=== PATIENT | female | born 1965 | race Caucasian/White ===

== ENCOUNTER 2020-09-25 05:22 | Emergency (ER) | payer BC ==
[2020-09-25] MEDS ORDERED: HYDROmorphone 0.5 MG/0.5 ML Syringe IVPUSH ONE ×2 (05:42→06:29)
[2020-09-25] MEDS ORDERED: Metoclopramide 10 MG/2 ML SDV IVPUSH ONE (05:42)
[2020-09-25] MEDS ORDERED: Sodium Chloride 0.9% 1,000 ML IV SCH (05:45)
--- NOTE | 2020-09-25 05:46 | EDM.PDOC ---
ED HPI GENERAL MEDICAL PROBLEM - General Chief Complaint: Flank Pain Stated Complaint: LEFT FLANK PAIN Time Seen by Provider: 09/25/20 05:41 Source of Information: Reports: Patient History Limitations: Reports: No Limitations - History of Present Illness INITIAL COMMENTS - FREE TEXT/NARRATIVE: 55-year-old female presents to the ED with left flank pain rating down left lateral abdomen to the groin. Patient states she has had pain off and on in the left flank and back for the last 24 hours. She woke from sleep around 0400 hrs. this morning with acute onset of need to void. She did not turn the light on and does not know if there is any blood in the urine. Pain seemed to get much worse after getting up to void. She has been pacing the floor since 0400 hrs. with no position comfortable. Associated nausea without vomiting. Pain does radiate along her left lateral abdomen down towards the left groin. She has no past history of renal colic. She was told in the past by CT scan about 6 weeks ago that she did have a stone within the left kidney tissue that might become problematic in the future. They told her however the stone was too large to pass on its own. She has no fever or chills. No dysuria urgency but does have urinary frequency. Onset: Today, Sudden Onset Date: 09/25/20 Onset Time: 04:00 (Sudden onset of severe left flank pain rating down towards the left groin. Pain left back and flank off and on for the last 24 hours preceding this.) Duration: Hour(s):, Getting Worse, Waxing/Waning (Constant and never goes away.) Location: Reports: Abdomen (Left lateral abdomen down to the groin.), Back (Left flank pain rating to the left groin.) Quality: Reports: Ache, Sharp, Stabbing Severity: Severe (8 out of 10) Improves with: Reports: None (No position is comfortable.) Worsens with: Reports: None Context: Denies: Activity, Exercise, Lifting, Sick Contact, Trauma, Other Associated Symptoms: Reports: Loss of Appetite, Nausea/Vomiting (Nausea without vomiting). Denies: No Other Symptoms, Confusion, Chest Pain, Cough, cough w sputum, Diaphoresis, Fever/Chills, Headaches, Malaise, Rash, Seizure, Shortness of Breath, Syncope, Weakness Treatments BILLI[employer]ER: Reports: Other (see below) (None.) Left Flank Pain Score (Numeric/FACES): 8 - Related Data Allergies Allergy/AdvReac Type Severity Reaction Status Date / Time adhesive Allergy Other Verified 09/25/20 05:34 naproxen [From Aleve] Allergy Other Verified 09/25/20 05:34 Home Meds: Home Meds Allopurinol [Zyloprim] 300 mg PO DAILY 09/25/20 [History] Furosemide [Lasix] 20 mg PO DAILY 09/25/20 [History] Levothyroxine 150 mcg PO ACBREAKFAST 09/25/20 [History] Losartan Potassium [Cozaar] 100 mg PO DAILY 09/25/20 [History] Metoprolol Succinate [Toprol XL 100mg] 100 mg PO DAILY 09/25/20 [History] Ondansetron [Zofran] 4 mg BUCCAL Q6H PRN #6 tab 09/25/20 [Rx] Rosuvastatin [Crestor] 5 mg PO DAILY 09/25/20 [History] Secukinumab [Cosentyx Syringe] 150 mg SQ ASDIRECTED 09/25/20 [History] amLODIPine [Norvasc] 5 mg PO DAILY 09/25/20 [History] glipiZIDE [Glucotrol XL] 10 mg PO DAILY 09/25/20 [History] metFORMIN HCl [Metformin HCl ER] 750 mg PO DAILY 09/25/20 [History] oxyCODONE HCl/Acetaminophen [Percocet 5-325 mg Tablet] 1 - 2 each PO Q4H PRN #16 tablet 09/25/20 [Rx] traZODone 50 mg PO BEDTIME PRN 09/25/20 [History] Past Medical History Cardiovascular History: Reports: High Cholesterol, Hypertension Psychiatric History: Reports: Other (See Below) (Insomnia. Uses trazodone at at bedtime.) Endocrine/Metabolic History: Reports: Diabetes, Type II (Taking Metformin and glipizide.), Hypothyroidism (On levothyroxine treatment), Obesity/BMI 30+ Dermatologic History: Reports: Psoriasis (Has been on Cosentyx for about 6 months. At present she feels her psoriasis and is quite active involving her hands with peeling of the skin on the volar aspect of numerous fingers and both ankles. She is not convinced that it is working really well for her at this time.) - Past Surgical History GI Surgical History: Reports: Cholecystectomy, Other (See Below) (Resection of approximately 5 inches of her sigmoid colon due to perforation from diverticulitis. She had primary anastomosis. No colostomy.) Social & Family History - Living Situation & Occupation Living situation: Reports: Occupation: Employed ED ROS GENERAL - Review of Systems Review Of Systems: See Below Constitutional: Denies: Fever, Chills, Malaise, Weakness, Fatigue, Weight Loss HEENT: Reports: No Symptoms Respiratory: Reports: No Symptoms Cardiovascular: Reports: Blood Pressure Problem, Dyspnea on Exertion. Denies: Claudication, Edema, Lightheadedness, Orthopnea, Palpitations Endocrine: Reports: Fatigue (On occasion.), Other (Does have type 2 diabetes.) GI/Abdominal: Reports: Abdominal Pain (See history of present illness), Nausea (Nausea associate with left flank pain left abdominal pain). Denies: Constipation, Diarrhea : Reports: Flank Pain, Frequency. Denies: Dysuria, Urgency Musculoskeletal: Reports: Back Pain Skin: Reports: Other (Psoriasis.) Neurological: Reports: No Symptoms Psychiatric: Reports: No Symptoms Hematologic/Lymphatic: Reports: No Symptoms Immunologic: Reports: No Symptoms ED EXAM, RENAL/ - Physical Exam Exam: See Below Exam Limited By: No Limitations General Appearance: Alert, WD/WN, Mild Distress, Other (Patient is definitely uncomfortable. Temperature is 36.1 degrees. Heart rate 77 and sinus. Respiratory to 17 with O2 sats of 93 to 95% room air. BP elevated 168 113.) Eye Exam: Bilateral Eye: Normal Inspection (No scleral icterus or blepharal pallor), PERRL Respiratory/Chest: No Respiratory Distress, Lungs Clear, Normal Breath Sounds, No Accessory Muscle Use Cardiovascular: Normal Peripheral Pulses, Regular Rate, Rhythm, No Edema, No Gallop, No Murmur, No Rub GI/Abdominal: Soft, No Organomegaly, No Abnormal Bruit, No Mass, Guarding ( with mild guarding left), Tender (Under left upper quadrant left mid abdomen on deep palpation), Abnormal Bowel Sounds (Bowel sounds are diminished from the norm but are present.). No: Rigid ( upper quadrant.), Rebound Back Exam: CVA Tenderness (L), Decreased Range of Motion, Vertebral Tenderness. No: CVA Tenderness (R) (Mild.) Extremities: Normal Inspection (Lumbar spine.), Normal Range of Motion, Non- Tender, No Pedal Edema Neurological: Alert, Oriented, CN II-XII Intact, Normal Cognition Psychiatric: Normal Affect, Normal Mood Skin Exam: Warm, Dry, Intact, Normal Color, No Rash Course - Vital Signs Last Recorded V/S: Last Vital Signs Temp 36.1 C 09/25/20 05:37 Pulse 77 09/25/20 05:37 Resp 17 09/25/20 05:37 BP 168/113 H 09/25/20 05:37 Pulse Ox 93 L 09/25/20 05:37 - Orders/Labs/Meds Orders: Active Orders 24 hr Category Date Time Status Sodium Chloride 0.9% [Normal Saline] 1,000 ml Med 09/25/20 05:45 Active IV ASDIRECTED Medication Orders Sodium Chloride (Normal Saline) 1,000 mls @ 150 mls/hr IV ASDIRECTED OSCAR Last Admin: 09/25/20 05:51 Dose: 150 mls/hr Documented by: MOHAN Labs: Laboratory Tests 09/25/20 Range/Units 05:45 Urine Color Yellow (Yellow) Urine Appearance Cloudy H (Clear) Urine pH 5.5 (5.0-8.0) Ur Specific Renick > or = 1.030 (1.005-1.030) Urine Protein 2+ H (Negative) Urine Glucose (UA) Negative (Negative) Urine Ketones Negative (Negative) Urine Occult Blood 3+ H (Negative) Urine Nitrite Negative (Negative) Urine Bilirubin Negative (Negative) Urine Urobilinogen 0.2 (0.2-1.0) Ur Leukocyte Esterase Negative (Negative) Urine RBC >100 H (0-5) /hpf Urine WBC 0-5 (0-5) /hpf Ur Epithelial Cells 0-5 (0-5) /hpf Urine Bacteria Few (FEW) /hpf Urine Mucus Not seen (FEW) /hpf Meds: Medications Generic Name Dose Route Start Last Admin Trade Name Freq PRN Reason Stop Dose Admin Sodium Chloride 1,000 mls @ 150 mls/hr 09/25/20 05:45 09/25/20 05:51 Normal Saline IV 150 mls/hr ASDIRECTED OSCAR Administration Discontinued Medications Generic Name Dose Route Start Last Admin Trade Name Freq PRN Reason Stop Dose Admin Hydromorphone HCl 0.5 mg 09/25/20 05:42 09/25/20 05:52 Hydromorphone 0.5 Mg/0.5 Ml Syringe IVPUSH 09/25/20 05:43 0.5 mg ONETIME ONE Administration Hydromorphone HCl 0.5 mg 09/25/20 06:29 09/25/20 06:33 Hydromorphone 0.5 Mg/0.5 Ml Syringe IVPUSH 09/25/20 06:30 0.5 mg ONETIME ONE Administration Metoclopramide HCl 7.5 mg 09/25/20 05:42 09/25/20 05:51 Metoclopramide 10 Mg/2 Ml Sdv IVPUSH 09/25/20 05:43 7.5 mg ONETIME ONE Administration - Radiology Interpretation Free Text/Narrative:: 55-year-old female presents to the ED with left flank pain left low back pain off and on for the last 24 hours. She woke around 0400 hrs. this morning with acute onset of severe left flank pain rating into the left groin. She was told a month ago or more that she had a stone in her left kidney. She was told that it was too large to pass on its own. She has no history of renal colic. She has not identified that the urine appears bloody or dark in color. Associated nausea with the pain but no vomiting. Examination reveals tenderness left upper quadrant of abdomen and left costovertebral angle. Mild guarding left upper quadrant of the abdomen. Clinically she is experiencing renal colic. Plan IV normal saline at 150 mils per hour. We will give Dilaudid 0.5 mg IV with Reglan 7.5 mg IV for acute pain relief. She will have CT of the abdomen pelvis per renal protocol and a urinalysis will be done if 1 becomes available. - Re-Assessments/Exams Free Text/Narrative Re-Assessment/Exam: 09/25/20 06:29 CT scan of the abdomen pelvis has been completed without any contrast per renal protocol. She has a small hiatal hernia. Visualized lung bases are normal. Liver appears homogeneous. Gallbladder is absent. Pancreas appears normal. Spleen appears normal. Left kidney shows minimal hydronephrosis. Proximal hydroureter. She has a 6.2 by 4.4 mm stone in the proximal left ureter approximately 4 and half centimeters from the left renal pelvis. No other stones are evident in the renal parenchyma. She has several stones in the pelvis some of which are leiomyoma calcifications. Small and large bowels appear to be within normal limits. Uterus is small and normal per her age. No obvious ovarian masses. Patient pain is better after the initial Dilaudid 0.5 mg but still a 4 out of 10. We will repeat Dilaudid 0.5 mg IV. She is allergic to naproxen and therefore Toradol is relatively contraindicated. The plan will be to discharge her home on Percocet tabs 5 /325 mg strength 1 or 2 every 4-6 hours necessary for pain relief with Zofran 4 mg sublingual every 4 to 6 hours. For nausea relief. She will be sent home with a urine strainer. Plan will be to send her chart and CT to [facility] in [place] to urology services so that tentatively she could be booked for a follow-up appointment which will likely be 10 to 14 days away. If she has not passed the stone by then she may well require lithotripsy. 09/25/20 06:39 Urinalysis reveals 2+ protein 3+ occult blood negative leukocyte esterase and greater than 100 RBCs per high-power field and no white cells. 09/25/20 07:01 radiology over read of the CT abdomen pelvis is now available. Left renal pelvis is slightly prominent. Proximal left ureter is slightly prominent. These findings are caused by a proximal left ureteric calculus measuring about 6.2 mm which is what I got. No other ureteral calcifications are seen. Small nonobstructing calculi are noted within the upper and lower pole of the left kidney measuring about 1 to 1.5 mm. No abnormal calcifications are seen within the right kidney. Visualized lung bases show nothing acute. Bilateral breast prostheses are evident. Liver shows no focal parenchymal abnormality. Spleen size is normal. Adrenal glands show no nodules. Pancreas shows no abnormality. Gallbladder is not seen compared with prior cholecystectomy. Surgical clips are seen. Abdominal aorta shows atherosclerotic calcification which continues into the iliac vessels without aneurysm. No retroperitoneal adenopathy or mesenteric abnormalities are identified. Appendix is not visualized. No pelvic mass or adenopathy is seen. There is evidence of prior surgery within the sigmoid colon with surgical and the stone comic sutures being seen. Bone window settings were reviewed. Slight degenerative changes seen within the thoracic spine as well as within the apophyseal joints mostly at the L4-5 level. Vacuum phenomena is also noted within the sacroiliac joints with sclerosis compared with degenerative change. No acute osseous abnormalities appreciated. On reevaluation the patient is still having significant pain and is uncomfortable seated. We will repeat Dilaudid 01 mg IV for pain relief. Departure - Departure Time of Disposition: 07:25 Disposition: Home, Self-Care 01 Condition: Fair Clinical Impression: Renal colic on left side - Discharge Information *PRESCRIPTION DRUG MONITORING PROGRAM REVIEWED*: Not Applicable *COPY OF PRESCRIPTION DRUG MONITORING REPORT IN PATIENT ALEN: Not Applicable Prescriptions: oxyCODONE HCl/Acetaminophen [Percocet 5-325 mg Tablet] 1 - 2 each PO Q4H PRN #16 tablet PRN Reason: pain relief. Ondansetron [Zofran] 4 mg BUCCAL Q6H PRN #6 tab PRN Reason: nausea or vomiting Referrals: Alvaro Mendoza MD [Primary Care Provider] - Forms: ED Department Discharge Additional Instructions: Evaluation in the emergency room this morning in regards to abrupt onset of significant left-sided flank pain rating down to the left groin. Associated nausea without vomiting. Examination revealed tenderness in the left costovertebral angle of your back and left upper quadrant of the abdomen. CT scan of the abdomen pelvis without contrast reveals a 6.2 x 4.4 cm calcification in the upper or proximal left ureter. The stone has approximately 11 inches to travel down to the urinary bladder. If the stone stops moving the pain goes away. However the pain can come back at any time as the stone starts to drop down the ureter towards the bladder. This stone has a 60 to 75% chance of passing on its own over the next couple of weeks. You will be sent home with a urinary strainer to strain your urine to identify the stone has indeed passed but you do not need to start doing this until pain primarily is down in the left groin. You would need to return to medical care if you develop any signs of fever chills or increasing backache. If pain recurs you may take Zofran 4 mg under tongue for nausea or vomiting relief. Percocet tabs 5/325 mg strength ideally 1 tablet with Motrin 600 mg at onset of pain. If the pain is not markedly improved in an hour you could take a second Percocet 5 /325 mg tablet. Repeat this as needed. Tentatively I will send your notes to urology services at [facility] in [place] and tentatively have the booking medical secretary receptionist call you with an appointment time which will likely be 2 weeks away. If the stone passes in the interim you may phone and cancel your appointment. Sepsis Event Note (ED) - Evaluation Sepsis Screening Result: No Definite Risk - Focused Exam Vital Signs: Vital Signs Temp Pulse Resp BP Pulse Ox 09/25/20 05:37 36.1 C 77 17 168/113 H 93 L - My Orders Last 24 Hours: My Active Orders 09/25/20 05:45 Sodium Chloride 0.9% [Normal Saline] 1,000 ml IV ASDIRECTED - Assessment/Plan Last 24 Hours: My Active Orders 09/25/20 05:45 Sodium Chloride 0.9% [Normal Saline] 1,000 ml IV ASDIRECTED
--- NOTE | 2020-09-25 06:46 | CT ---
CT abdomen and pelvis Technique: Multiple axial sections were obtained from above the dome of the diaphragm inferiorly through the pubic symphysis. Intravenous and oral contrast were not utilized. Study has been performed as a ureteral stone protocol. Comparison: No prior abdominal imaging is available. Findings: Left renal pelvis is slightly prominent. Proximal left ureter is slightly prominent. These findings are caused by a proximal left ureteral calculus measuring about 6.2 mm. No other ureteral calcifications are seen. Small nonobstructing calculi are noted within the upper and lower pole of the left kidney measuring about 1-1.5 mm. No abnormal calcifications are seen within the right kidney. Visualized lung bases show nothing acute. Bilateral breast prosthesis are noted. Liver shows no focal parenchymal abnormality. Spleen size is normal. Adrenal glands show no nodule. Pancreas shows no abnormality. Gallbladder is not seen compatible with prior cholecystectomy. Surgical clips are brent. Abdominal aorta shows atherosclerotic calcification which continues into the iliac vessels with no aneurysm. No retroperitoneal adenopathy or mesenteric abnormalities are seen. Appendix is not visualized. No pelvic mass or adenopathy is seen. There is evidence of prior surgery within the sigmoid colon with surgical anastomotic sutures being seen. Bone window settings were reviewed. Slight degenerative change is seen within the thoracic spine as well as within the apophyseal joints mostly at L4-5. Vacuum phenomena is also noted within the sacroiliac joints with sclerosis compatible with degenerative change. No acute osseous abnormality is appreciated. Impression: 1. 6.2 mm obstructing calculus within the proximal left ureter causing proximal hydronephrosis. Two small nonobstructing calculi are seen within the left kidney. 2. Other nonacute findings as described above. Diagnostic code #3
[2020-09-25] MEDS ORDERED: HYDROmorphone 1 MG/ML Syringe IVPUSH ONE (07:08)
== END 2020-09-25 07:55 | disposition home or self-care (01) ==
LOC: JD.ED 05:22
DX: N13.2 Hydronephrosis with renal and ureteral calculous obstruction (principal); E78.00 Pure hypercholesterolemia, unspecified; I10 Essential (primary) hypertension; E11.9 Type 2 diabetes mellitus without complications; Z79.84 Long term (current) use of oral hypoglycemic drugs; Z79.899 Other long term (current) drug therapy; Z88.5 Allergy status to narcotic agent; Z91.048 Other nonmedicinal substance allergy status
CPT/HCPCS: 74176; 81001; 96374; 96375; 96376; 99284; J1170; J2765; J7030

== ENCOUNTER 2020-09-27 12:18 | Emergency (ER) | payer BC ==
[2020-09-27] MEDS ORDERED: methylPREDNISolone Sodium Succinate 125 MG/2 ML SDV IVPUSH PRN (12:20)
[2020-09-27] MEDS ORDERED: diphenhydrAMINE 50 MG/ML SDV IVPUSH PRN (12:20)
[2020-09-27] MEDS ORDERED: Famotidine 20 MG/2 ML SDV IVPUSH PRN (12:20)
[2020-09-27] MEDS ORDERED: EPINEPHrine 1 MG/ML SDV IM PRN (12:20)
[2020-09-27] MEDS ORDERED: Sodium Chloride 0.9% 10 ML Syringe FLUSH SCH (12:30)
--- NOTE | 2020-09-27 12:49 | EDM.PDOC ---
<FelishaPhillip Yeimi - Last Filed: 09/27/20 12:48> ED HPI GENERAL MEDICAL PROBLEM - General Chief Complaint: Respiratory Problem Stated Complaint: COVID + Time Seen by Provider: 09/27/20 13:00 - Related Data Allergies Allergy/AdvReac Type Severity Reaction Status Date / Time adhesive Allergy Other Verified 09/27/20 12:52 naproxen [From Aleve] Allergy Other Verified 09/27/20 12:52 Home Meds: Home Meds Allopurinol [Zyloprim] 300 mg PO DAILY 09/25/20 [History] Furosemide [Lasix] 20 mg PO DAILY 09/25/20 [History] Levothyroxine 150 mcg PO ACBREAKFAST 09/25/20 [History] Losartan Potassium [Cozaar] 100 mg PO DAILY 09/25/20 [History] Metoprolol Succinate [Toprol XL 100mg] 100 mg PO DAILY 09/25/20 [History] Ondansetron [Zofran] 4 mg BUCCAL Q6H PRN #6 tab 09/25/20 [Rx] Rosuvastatin [Crestor] 5 mg PO DAILY 09/25/20 [History] Secukinumab [Cosentyx Syringe] 150 mg SQ ASDIRECTED 09/25/20 [History] amLODIPine [Norvasc] 5 mg PO DAILY 09/25/20 [History] glipiZIDE [Glucotrol XL] 10 mg PO DAILY 09/25/20 [History] metFORMIN HCl [Metformin HCl ER] 750 mg PO DAILY 09/25/20 [History] oxyCODONE HCl/Acetaminophen [Percocet 5-325 mg Tablet] 1 - 2 each PO Q4H PRN #16 tablet 09/25/20 [Rx] traZODone 50 mg PO BEDTIME PRN 09/25/20 [History] Past Medical History Cardiovascular History: Reports: High Cholesterol, Hypertension Genitourinary History: Reports: Renal Calculus 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 Uses trazodone at at bedtime.) Endocrine/Metabolic History: Reports: Diabetes, Type II (Taking Metformin and glipizide.), Hypothyroidism (On levothyroxine treatment), Obesity/BMI 30+ Dermatologic History: Reports: Psoriasis (Has been on Cosentyx for about 6 months. At present she feels her psoriasis and is quite active involving her hands with peeling of the skin on the volar aspect of numerous fingers and both ankles. She is not convinced that it is working really well for her at this time.) - Past Surgical History GI Surgical History: Reports: Cholecystectomy, Other (See Below) (Resection of approximately 5 inches of her sigmoid colon due to perforation from diverticulitis. She had primary anastomosis. No colostomy.) Social & Family History - Living Situation & Occupation Living situation: Reports: Occupation: Employed Departure - Departure Disposition: Home, Self-Care 01 Clinical Impression: COVID-19 - Discharge Information Instructions: 10 Things You Can Do to Manage Your COVID-19 Symptoms at Home - [facility] Referrals: Floyd Cano MD [Physician] - Forms: ED Department Discharge Additional Instructions: You were seen in the ER today for ongoing and/or worsening respiratory symptoms. Your chest x-ray showed no signs of pneumonia at this time. Your oxygen levels were acceptable at 92 to 93% on room air. You were given the outpatient IV Regeneron therapy for management of your COVID-19 symptoms at today's visit. Please try to increase your oral fluid intake, and eat multiple small meals throughout the day, to keep yourself healthy. You need to keep yourself nourished in order to fight off this disease. You can try a liquid diet like gatorade/powerade as well to get your electrolytes. You may take 500 mg Tylenol every hours 6 hours for pain/fever relief. Do not exceed 4000 mg Tylenol in a 24-hour time span. However, running a fever is your body's natural response to illness, and it allows the body to develop antibodies to disease, we are recommending trying to limit the use of Tylenol as much as possible to allow your body's natural immune response. Recommend you obtain a pulse oximeter and monitor your oxygen levels at home, you should place the monitor on your finger, and sit in a calm, quiet position for a few minutes and then record the number that is on the screen. If this consistently below 90% on room air without movement, this would be cause for concern to come back to the hospital for further management of your COVID-19 disease. <Alvina Soni V - Last Filed: 09/27/20 14:28> ED HPI GENERAL MEDICAL PROBLEM - General Source of Information: Reports: Patient, RN Notes Reviewed History Limitations: Reports: No Limitations - History of Present Illness INITIAL COMMENTS - FREE TEXT/NARRATIVE: Patient is a 55-year-old female who presents to the ER for her COVID-19 symptom s. The patient was set up for monoclonal antibody outpatient IV therapy, when the nurses triaged her for the IV, they noted that her oxygen saturations were in the low 90s, high 80s. Patient states that she has been sick since Friday, and she has had a fever at home at times, and she is having some generalized abdominal discomfort, but she has been known to have a obstructing type kidney stone that she has been fighting. She is attributing the fatigue, to the extra pain meds that she has been taking for this. Patient states that she does not feel too bad actually. She is a diabetic, has a BMI of 37.5, so she does meet inclusion criteria for Regeneron therapy. Patient had not had COVID-19 before, nor did she get the vaccine. ED ROS GENERAL - Review of Systems Review Of Systems: Comprehensive ROS is negative, except as noted in HPI. ED EXAM, GENERAL - Physical Exam Exam: See Below Exam Limited By: No Limitations General Appearance: Alert, WD/WN, No Apparent Distress Respiratory/Chest: No Respiratory Distress, Lungs Clear, Normal Breath Sounds, No Accessory Muscle Use, Chest Non-Tender Cardiovascular: Normal Peripheral Pulses, Regular Rate, Rhythm, No Edema Peripheral Pulses: 2+: Radial (L), Radial (R) GI/Abdominal: Normal Bowel Sounds, Soft, Non-Tender, No Distention, No Mass Neurological: Alert, Oriented, Normal Cognition, No Motor/Sensory Deficits Psychiatric: Normal Affect, Normal Mood Skin Exam: Warm, Dry, Intact, Normal Color, No Rash Course - Vital Signs Last Recorded V/S: Last Vital Signs Temp 98.6 F 09/27/20 12:49 Pulse 77 09/27/20 14:00 Resp 16 09/27/20 14:00 BP 120/82 09/27/20 14:00 Pulse Ox 90 L 09/27/20 14:00 - Orders/Labs/Meds Orders: Active Orders 24 hr Category Date Time Status Vital Signs [RC] Q8H Care 09/27/20 12:21 Active Chest 1V Frontal [CR] Stat Exams 09/27/20 13:08 Taken EPINEPHrine [Adrenalin] Med 09/27/20 12:20 Active 0.3 mg IM ONETIME PRN Famotidine [Pepcid] Med 09/27/20 12:20 Active 20 mg IVPUSH ONETIME PRN Sodium Chloride 0.9% [Saline Flush] Med 09/27/20 12:30 Active 30 ml FLUSH ASDIRECTED diphenhydrAMINE [Benadryl] Med 09/27/20 12:20 Active 50 mg IVPUSH ONETIME PRN methylPREDNISolone Sod Succ [Solu-MEDROL] Med 09/27/20 12:20 Active 125 mg IVPUSH ONETIME PRN Medication Orders Diphenhydramine HCl (Diphenhydramine 50 Mg/Ml Sdv) 50 mg IVPUSH ONETIME PRN PRN Reason: hypersensitivity reaction Epinephrine HCl (Epinephrine 1 Mg/Ml Sdv) 0.3 mg IM ONETIME PRN PRN Reason: hypersensitivity reaction Famotidine (Famotidine 20 Mg/2 Ml Sdv) 20 mg IVPUSH ONETIME PRN PRN Reason: hypersensitivity reaction Methylprednisolone Sodium Succinate (Methylprednisolone Sodium Succinate 125 Mg/2 Ml Sdv) 125 mg IVPUSH ONETIME PRN PRN Reason: hypersensitivity reaction Sodium Chloride (Sodium Chloride 0.9% 10 Ml Syringe) 30 ml FLUSH ASDIRECTED [facility] Labs: Laboratory Tests 09/27/20 09/27/20 09/27/20 Range/Units 13:40 13:40 13:40 WBC 4.60 (3.98-10.04) K/mm3 RBC 4.36 (3.98-5.22) M/mm3 Hgb 12.6 (11.2-15.7) gm/dl Hct 39.0 (34.1-44.9) % MCV 89.4 (79.4-94.8) fl MCH 28.9 (25.6-32.2) pg MCHC 32.3 (32.2-35.5) g/dl RDW Std Deviation 46.2 (36.4-46.3) fL Plt Count 193 (182-369) K/mm3 MPV 9.6 (9.4-12.3) fl Neut % (Auto) 70.1 (34.0-71.1) % Lymph % (Auto) 20.4 (19.3-51.7) % Blaine % (Auto) 8.9 (4.7-12.5) % Eos % (Auto) 0.2 L (0.7-5.8) Baso % (Auto) 0.2 (0.1-1.2) % Neut # (Auto) 3.22 (1.56-6.13) K/mm3 Lymph # (Auto) 0.94 L (1.18-3.74) K/mm3 Blaine # (Auto) 0.41 H (0.24-0.36) K/mm3 Eos # (Auto) 0.01 L (0.04-0.36) K/mm3 Baso # (Auto) 0.01 (0.01-0.08) K/mm3 D-Dimer, Quantitative 0.40 (0.19-0.50) mg/L Sodium 139 (136-145) mEq/L Potassium 3.6 (3.5-5.1) mEq/L Chloride 101 (98-107) mEq/L Carbon Dioxide 27 (21-32) mEq/L Anion Gap 14.6 (5-15) BUN 17 (7-18) mg/dL Creatinine 0.9 (0.55-1.02) mg/dL Est Cr Clr Drug Dosing 55.20 mL/min Estimated GFR (MDRD) > 60 (>60) mL/min BUN/Creatinine Ratio 18.9 H (14-18) Glucose 129 H (70-99) mg/dL Calcium 8.4 L (8.5-10.1) mg/dL Total Bilirubin 0.4 (0.2-1.0) mg/dL AST 131 H (15-37) U/L ALT 280 H (14-59) U/L Alkaline Phosphatase 218 H (46-116) U/L C-Reactive Protein 3.5 H* (<1.0) mg/dL Total Protein 7.5 (6.4-8.2) g/dl Albumin 3.5 (3.4-5.0) g/dl Globulin 4.0 gm/dL Albumin/Globulin Ratio 0.9 L (1-2) Meds: Medications Generic Name Dose Route Start Last Admin Trade Name Freq PRN Reason Stop Dose Admin Diphenhydramine HCl 50 mg 09/27/20 12:20 Diphenhydramine 50 Mg/Ml Sdv IVPUSH ONETIME PRN hypersensitivity reaction Epinephrine HCl 0.3 mg 09/27/20 12:20 Epinephrine 1 Mg/Ml Sdv IM ONETIME PRN hypersensitivity reaction Famotidine 20 mg 09/27/20 12:20 Famotidine 20 Mg/2 Ml Sdv IVPUSH ONETIME PRN hypersensitivity reaction Methylprednisolone Sodium Succinate 125 mg 09/27/20 12:20 Methylprednisolone Sodium Succinate 125 Mg/2 Ml Sdv IVPUSH ONETIME PRN hypersensitivity reaction Sodium Chloride 30 ml 09/27/20 12:30 Sodium Chloride 0.9% 10 Ml Syringe FLUSH ASDIRECTED [facility] Discontinued Medications Generic Name Dose Route Start Last Admin Trade Name Freq PRN Reason Stop Dose Admin CASIRIVIMAB/IMDEVIMAB 10 ml/ 110 mls @ 220 mls/hr 09/27/20 12:20 09/27/20 13:20 Sodium Chloride IV 09/27/20 12:49 220 mls/hr ONETIME ONE Administration - Re-Assessments/Exams Free Text/Narrative Re-Assessment/Exam: 09/27/20 13:11 Patient presents to the ER for her COVID-19 symptoms. I spoke with the patient to provide information about Regeneron treatment. I offered them the "Patient and caregiver EUA Regeneron fact sheet" to read and review. I stated that the drug has been approved by an emergency use authorization (EUA) process and has not been fully FDA reviewed or approved. The patient meets the EUA requirements. I discussed there are other potential treatment options that are currently not FDA approved to treat COVID-19. I did offer an opportunity to ask questions and all questions were answered. The patient voiced understanding and agreed to proceed with the treatment. For today's purposes we will go ahead and get a chest x-ray, and basic labs to include a CBC, CMP, CRP and a D-dimer for ongoing medical management. When I evaluated the patient, her O2 saturations were above 92% at all times while being in the room. 09/27/20 14:26 Laboratory evaluation demonstrates a CBC within normal limits, D-dimer within normal limits at 0.40, CMP demonstrates elevated liver enzymes, but no other focal abnormalities, CRP is elevated at 3.5. O2 sats have stayed at 92 to 93% on room air while being in the ER, the 1 hour timeframe for Regeneron therapy will be at around 2:50 PM. We will go ahead and discharge her home at that time. Departure - Departure Time of Disposition: 14:27 Condition: Good - Discharge Information *PRESCRIPTION DRUG MONITORING PROGRAM REVIEWED*: No *COPY OF PRESCRIPTION DRUG MONITORING REPORT IN PATIENT ALEN: No Sepsis Event Note (ED) - Focused Exam Vital Signs: Vital Signs Temp Pulse Resp BP Pulse Ox 09/27/20 14:00 77 16 120/82 90 L 09/27/20 13:45 78 16 126/75 90 L 09/27/20 13:30 79 16 131/72 93 L 09/27/20 12:49 98.6 F 65 16 99/53 L 88 L - My Orders Last 24 Hours: My Active Orders 09/27/20 13:08 Chest 1V Frontal [CR] Stat - Assessment/Plan Last 24 Hours: My Active Orders 09/27/20 13:08 Chest 1V Frontal [CR] Stat
--- NOTE | 2020-09-27 14:35 | CR ---
Chest: Portable view of the chest was obtained. Comparison: No prior chest imaging is available. Heart size and mediastinum are normal. Lungs are clear with no acute parenchymal change. No acute osseous abnormality is appreciated. Impression: 1. Nothing acute is seen on portable chest x-ray. Diagnostic code #1
== END 2020-09-27 15:25 | disposition home or self-care (01) ==
LOC: JD.ED 12:18 → JD.IVTHER 12:18 → EDSTATUS 12:46 → JD.ED 15:25
DX: U07.1 COVID-19 (principal); E78.00 Pure hypercholesterolemia, unspecified; I10 Essential (primary) hypertension; E66.9 Obesity, unspecified; Z68.37 Body mass index [BMI] 37.0-37.9, adult; Z88.5 Allergy status to narcotic agent; Z91.048 Other nonmedicinal substance allergy status; Z79.84 Long term (current) use of oral hypoglycemic drugs; Z79.899 Other long term (current) drug therapy
CPT/HCPCS: 36415; 71045; 80053; 85025; 85379; 86140; 99284; M0243; Q0243; 99283

== ENCOUNTER 2020-09-28 08:46 | Emergency (ER) | payer BC ==
[2020-09-28] MEDS ORDERED: HYDROmorphone 1 MG/ML Syringe IVPUSH ONE (09:41)
[2020-09-28] MEDS ORDERED: Metoclopramide 10 MG/2 ML SDV IVPUSH ONE (09:41)
[2020-09-28] MEDS ORDERED: Ondansetron 4 MG/2 ML SDV IVPUSH ONE (09:41)
[2020-09-28] MEDS ORDERED: Dextrose 5%-0.9% NaCl 1,000 ML IV SCH (09:45)
--- NOTE | 2020-09-28 09:46 | EDM.PDOC ---
ED HPI GENERAL MEDICAL PROBLEM - General Chief Complaint: Genitourinary Problem Stated Complaint: COVID +PT NOW HAS POSSIBLE KIDNEY STONE Time Seen by Provider: 09/28/20 09:35 Source of Information: Reports: Patient History Limitations: Reports: No Limitations - History of Present Illness INITIAL COMMENTS - FREE TEXT/NARRATIVE: 55-year-old female presents to the ED with increasing pain from renal colic. She was diagnosed with a 6.2 mm proximal left ureter stone on September 25. She was seen through the ED at that time. She has increasing right flank pain associate with nausea but no vomiting. Pain has kept her awake almost all night long. Pain has eased up a bit prior to coming to the ED. Her pain is now mostly in her left lower back and left lower abdomen suggesting the stone may have dropped substantially down the ureter. Unfortunately she was diagnosed with COVID-19 illness yesterday and both her and her are ill with this virus. This delayed her ability to get into urology for consultation which was scheduled for today. She was advised to come to the ED by her primary care practitioner to have further evaluation is to whether the stone is dropped far enough down the ureter that is going to pass on its own or possibly be easier to remove by basket retrieval versus lithotripsy. She denies hardly any cough at all from the Covid. Mostly nasal congestion mild sore throat. Mild headache and myalgia. Onset: Sudden Onset Date: 09/25/20 (Initial diagnosis with a 6.2 mm stone in her proximal left ureter September 25.) Duration: Day(s):, Getting Worse (Worsening pain overnight left flank and lower back.) Location: Reports: Abdomen (Left lower back left lower abdomen with no radiation into the left groin.), Back Quality: Reports: Ache, Throbbing, Other Severity: Severe (Pulsating pain rated as 8-9 out of 10. Currently down to 5 out of 10.) Improves with: Reports: None, Medication Worsens with: Reports: None Context: Reports: Other (Known to have a kidney stone left proximal ureter diagnosed 3 days ago.). Denies: Activity (Percocet tablets 5 to 25 mg strength at home.), Exercise, Lifting, Sick Contact, Trauma Associated Symptoms: Reports: Fever/Chills (Low-grade fever.), Headaches, Loss of Appetite, Malaise, Nausea/Vomiting (Nausea without vomiting.), Weakness, Other (Generalized myalgia secondary to COVID-19 illness diagnosed yesterday. She did receive monoclonal antibodies) Treatments SERVICE AGENT: Reports: Other (see below) (Percocet tabs 5 325 mg strength.) Left Flank Pain Score (Numeric/FACES): 8 - Related Data Allergies Allergy/AdvReac Type Severity Reaction Status Date / Time adhesive Allergy Other Verified 09/28/20 09:10 naproxen [From Aleve] Allergy Other Verified 09/28/20 09:10 Home Meds: Home Meds Allopurinol [Zyloprim] 300 mg PO DAILY 09/25/20 [History] Furosemide [Lasix] 20 mg PO DAILY 09/25/20 [History] Levothyroxine 150 mcg PO ACBREAKFAST 09/25/20 [History] Losartan Potassium [Cozaar] 100 mg PO DAILY 09/25/20 [History] Metoprolol Succinate [Toprol XL 100mg] 100 mg PO DAILY 09/25/20 [History] Ondansetron [Zofran] 4 mg BUCCAL Q6H PRN #6 tab 09/25/20 [Rx] Rosuvastatin [Crestor] 5 mg PO DAILY 09/25/20 [History] Secukinumab [Cosentyx Syringe] 150 mg SQ ASDIRECTED 09/25/20 [History] amLODIPine [Norvasc] 5 mg PO DAILY 09/25/20 [History] glipiZIDE [Glucotrol XL] 10 mg PO DAILY 09/25/20 [History] metFORMIN HCl [Metformin HCl ER] 750 mg PO DAILY 09/25/20 [History] oxyCODONE HCl/Acetaminophen [Percocet 5-325 mg Tablet] 1 - 2 each PO Q4H PRN #16 tablet 09/25/20 [Rx] traZODone 50 mg PO BEDTIME PRN 09/25/20 [History] Tamsulosin HCl [Flomax] 0.4 mg PO DAILY #5 cap.er.24h 09/28/20 [Rx] oxyCODONE HCl/Acetaminophen [Percocet 5-325 mg Tablet] 1 - 2 each PO Q4H PRN #12 tablet 09/28/20 [Rx] Past Medical History Cardiovascular History: Reports: High Cholesterol, Hypertension Genitourinary History: Reports: Renal Calculus [employer]ER History: Reports: Psychiatric History: Reports: Other (See Below) (Insomnia. Uses trazodone at at bedtime.) Endocrine/Metabolic History: Reports: Diabetes, Type II, Hypothyroidism, Obesity/BMI 30+ Hematologic History: Reports: Blood Transfusion(s) Dermatologic History: Reports: Psoriasis - Infectious Disease History Infectious Disease History: Reports: Chicken Pox, Measles, Mumps, Novel Coronavirus, Shingles - Past Surgical History HEENT Surgical History: Reports: Tonsillectomy GI Surgical History: Reports: Cholecystectomy, Colon, Other (See Below) Other GI Surgeries/Procedures: tummy tuck, fistula in colon--removed part of colon. Female Surgical History: Reports: Breast Implant, Section Musculoskeletal Surgical History: Reports: Carpal Tunnel Social & Family History - Tobacco Use Tobacco Use Status *Q: Never Tobacco User Second Hand Smoke Exposure: No - Caffeine Use Caffeine Use: Reports: Soda - Recreational Drug Use Recreational Drug Use: No - Living Situation & Occupation Living situation: Reports: Occupation: Employed ED ROS GENERAL - Review of Systems Review Of Systems: See Below Constitutional: Reports: Fever, Chills, Malaise, Weakness, Fatigue, Decreased Appetite HEENT: Reports: Throat Pain (Mild sore throat with onset of COVID-19 illness.) Respiratory: Reports: Cough. Denies: Shortness of Breath, Wheezing, Pleuritic Chest Pain, Sputum (Minimal nonproductive cough) Cardiovascular: Reports: Blood Pressure Problem, Dyspnea on Exertion. Denies: Chest Pain, Claudication, Edema, Lightheadedness, Orthopnea (Chronic hypertension.), Palpitations Endocrine: Reports: Fatigue (Partially from COVID-19 illness and partially from not being able to sleep normally.) GI/Abdominal: Reports: Abdominal Pain (Left lower quadrant abdominal pain but not rating into the groin.), Constipation, Nausea : Reports: Flank Pain (Left flank pain. Pain has changed substantially from onset of kidney stone in the proximal ureter 3 days ago. Is currently felt in her left lower back adjacent to the lumbar 4 vertebra.), Frequency. Denies: Hematuria, Incontinence, Urgency Musculoskeletal: Reports: Back Pain, Muscle Pain (Generalized myalgia involving her head neck and low back muscles. This is from COVID-19 illness.) Skin: Reports: No Symptoms Neurological: Reports: No Symptoms Psychiatric: Reports: No Symptoms Hematologic/Lymphatic: Reports: No Symptoms Immunologic: Reports: No Symptoms ED EXAM, RENAL/ - Physical Exam Exam: See Below Exam Limited By: No Limitations General Appearance: Alert, WD/WN, Mild Distress, Other (Temperature is 36.1 degrees. Heart rate 84 and sinus. Respiratory is 12 with O2 sats of 94% room air. BP 173/77.) Eye Exam: Bilateral Eye: Normal Inspection (No blepharal pallor no scleral i cterus.), PERRL Throat/Mouth: Normal Inspection, Normal Oropharynx, Other (Tongue is mildly dry and coated.) Head: Atraumatic, Normocephalic Neck: Normal Inspection, Supple, Non-Tender, Full Range of Motion. No: Lymphadenopathy (L), Lymphadenopathy (R) Respiratory/Chest: No Respiratory Distress, Lungs Clear, Normal Breath Sounds, No Accessory Muscle Use Cardiovascular: Normal Peripheral Pulses, Regular Rate, Rhythm, No Edema, No Gallop, No Murmur, No Rub GI/Abdominal: Non-Tender, No Organomegaly, No Mass, Abnormal Bowel Sounds (Bowel sounds are decreased from normal.). No: Guarding, Rigid, Rebound, Tender Back Exam: Normal Inspection. No: CVA Tenderness (L), CVA Tenderness (R) Extremities: Normal Inspection, Normal Range of Motion, Non-Tender, No Pedal Edema Neurological: Alert, Oriented, CN II-XII Intact, Normal Cognition Psychiatric: Normal Mood, Other (Appears to be in mild pain at this time.) Skin Exam: Warm, Dry, Intact, Normal Color, No Rash Course - Vital Signs Last Recorded V/S: Last Vital Signs Temp 36.0 C L 09/28/20 11:57 Pulse 80 09/28/20 11:57 Resp 16 09/28/20 11:57 BP 155/91 H 09/28/20 11:57 Pulse Ox 95 09/28/20 11:57 - Orders/Labs/Meds Orders: Active Orders 24 hr Category Date Time Status Oxygen Therapy, ED [RC] ASDIRECTED Care 09/28/20 10:10 Active URINALYSIS W/MICROSCOPIC [UA W/MICROSCOPIC] [URIN] Stat Lab 09/28/20 11:50 Results Dextrose 5%-0.9% NaCl [Dextrose 5%-Normal Saline] 1,000 Med 09/28/20 09:45 Active ml IV ASDIRECTED Medication Orders Dextrose/Sodium Chloride (Dextrose 5%-Normal Saline) 1,000 mls @ 250 mls/hr IV ASDIRECTED [facility] Last Admin: 09/28/20 10:01 Dose: 250 mls/hr Documented by: CANDELARIO Labs: Laboratory Tests 09/28/20 Range/Units 11:50 Urine Color Yellow (Yellow) Urine Appearance Clear (Clear) Urine pH 6.0 (5.0-8.0) Ur Specific Seibert 1.020 (1.005-1.030) Urine Protein 2+ H (Negative) Urine Glucose (UA) Negative (Negative) Urine Ketones Negative (Negative) Urine Occult Blood 2+ H (Negative) Urine Nitrite Negative (Negative) Urine Bilirubin Negative (Negative) Urine Urobilinogen 0.2 (0.2-1.0) Ur Leukocyte Esterase Negative (Negative) Meds: Medications Generic Name Dose Route Start Last Admin Trade Name Freq PRN Reason Stop Dose Admin Dextrose/Sodium Chloride 1,000 mls @ 250 mls/hr 09/28/20 09:45 09/28/20 10:01 Dextrose 5%-Normal Saline IV 250 mls/hr ASDIRECTED [facility] Administration Discontinued Medications Generic Name Dose Route Start Last Admin Trade Name Freq PRN Reason Stop Dose Admin Hydromorphone HCl 1 mg 09/28/20 09:41 09/28/20 09:59 Hydromorphone 1 Mg/Ml Syringe IVPUSH 09/28/20 09:42 1 mg ONETIME ONE Administration Metoclopramide HCl 10 mg 09/28/20 09:41 09/28/20 09:57 Metoclopramide 10 Mg/2 Ml Sdv IVPUSH 09/28/20 09:42 10 mg ONETIME ONE Administration Ondansetron HCl 4 mg 09/28/20 09:41 09/28/20 09:44 Ondansetron 4 Mg/2 Ml Sdv IVPUSH 09/28/20 09:42 Not Given ONETIME ONE - Radiology Interpretation Free Text/Narrative:: 55-year-old female presents to the ED primarily due to increased left renal colic pain overnight. She could not sleep at all due to the constant pulsating throbbing pain in her lower back. This suggest the diagnosed 6.2 mm stone in her proximal left ureter has traveled further down the ureter as her pain is now in her left lower back adjacent to lumbar 4 vertebra. Plan IV D5 normal saline at 250 mils an hour. We will give Dilaudid 1 mg IV with Reglan 10 mg IV. She will have a urinalysis repeated to make sure no infection has occurred. Repeat CT of the abdomen per renal protocol to be done. - Re-Assessments/Exams Free Text/Narrative Re-Assessment/Exam: 09/28/20 10:56 CT of the abdomen per renal protocol completed. Dilated left ureter and left renal pelvis are seen. Slight inflammatory changes noted around the renal pelvis and proximal left ureter. These findings are caused by an obstructing stone within the distal left ureter close to the UVJ. Side of this of this calculus is similar to previous study of around 6 mm. This presumably represents a stone that has migrated distally from prior exam. Small nonobstruc ting calculi are noted within the lower and upper pole of the left kidney which are stable from prior exam. Partially seen bilateral breast prostheses are noted. Visualized lung bases show a nodule within the left lung base presumably due to atelectasis as this is not seen on prior exam. Liver and spleen show no abnormalities. Adrenal glands show no nodules. No abnormality is seen within the pancreas. Surgical clips are seen from prior cholecystectomy. Abdominal aorta shows diffuse atherosclerotic calcification which continues into the iliac vessels. No aneurysm is seen. No retroperitoneal adenopathy or mesenteric abnormalities are seen. Several surgical clips are noted off the tip of the cecum. No pelvic mass or adenopathy is seen. There is evidence of prior surgery within the sigmoid colon with anastomotic sutures. 09/28/20 11:05: Patient is has no pain at present. She has been only using 1 tablet of the Percocet 5/325 mg at a time. Advised that she can take 2 at a ankit e as needed for pain relief. I am going to place her on Flomax 0.4 mg tablet once daily for 5 days. She is relatively asymptomatic from her COVID-19 illness. I will give her 12 more tablets of Percocet in the hopes that she may eventually passed this stone. It is setting right at the UVJ.Urinalysis shows 2+ proteinuria and 2+ occult blood. Leukocyte Estrace is negative. She will be discharged home at this time. Departure - Departure Time of Disposition: 11:16 Disposition: Home, Self-Care 01 Condition: Fair Clinical Impression: Renal colic on left side, COVID-19 - Discharge Information *PRESCRIPTION DRUG MONITORING PROGRAM REVIEWED*: Not Applicable *COPY OF PRESCRIPTION DRUG MONITORING REPORT IN PATIENT ALEN: Not Applicable Prescriptions: Tamsulosin HCl [Flomax] 0.4 mg PO DAILY #5 cap.er.24h oxyCODONE HCl/Acetaminophen [Percocet 5-325 mg Tablet] 1 - 2 each PO Q4H PRN #12 tablet PRN Reason: pain relief. Instructions: Kidney Stones, [id number] Referrals: Alvaro Mendoza MD [Primary Care Provider] - Forms: ED Department Discharge Additional Instructions: Evaluation in the emergency room today in regards to significant left flank and low back pain. Diagnosed with a 6.2 mm stone in the proximal left ureter [address] scan done today reveals the stone has indeed dropped down and is now sitting just outside the urinary bladder. It has about 1.5 cm to travel through the lower portion of the ureter and into the urinary bladder which time pain would resolve completely. Suggest taking 2 Percocet tabs 5 to 25 mg strength at a time for relief of pain. Also issue to try Flomax 0.4 mg tablet once daily for the next 5 days to help facilitate passage of the stone. Start straining the urine now at home in the hopes of catching the stone to prove that you actually passed it which would negate need for urology follow-up. Sepsis Event Note (ED) - Evaluation Sepsis Screening Result: No Definite Risk - Focused Exam Vital Signs: Vital Signs Temp Pulse Resp BP Pulse Ox 09/28/20 11:57 36.0 C L 80 16 155/91 H 95 09/28/20 11:25 35.8 C L 72 16 134/69 98 09/28/20 09:05 36.1 C 84 12 173/77 H 94 L - My Orders Last 24 Hours: My Active Orders 09/28/20 09:45 Dextrose 5%-0.9% NaCl [Dextrose 5%-Normal Saline] 1,000 ml IV ASDIRECTED 09/28/20 10:10 Oxygen Therapy, ED [RC] ASDIRECTED 09/28/20 11:50 URINALYSIS W/MICROSCOPIC [UA W/MICROSCOPIC] [URIN] Stat - Assessment/Plan Last 24 Hours: My Active Orders 09/28/20 09:45 Dextrose 5%-0.9% NaCl [Dextrose 5%-Normal Saline] 1,000 ml IV ASDIRECTED 09/28/20 10:10 Oxygen Therapy, ED [RC] ASDIRECTED 09/28/20 11:50 URINALYSIS W/MICROSCOPIC [UA W/MICROSCOPIC] [URIN] Stat
--- NOTE | 2020-09-28 10:45 | CT ---
CT abdomen and pelvis Technique: Multiple axial sections were obtained from above the dome of the diaphragm inferiorly through the pubic symphysis. Intravenous and oral contrast were not utilized. Study has been performed as a ureteral stone protocol. Additional coronal and sagittal images were obtained. Comparison: Previous CT abdomen and pelvis study of 09/25/20. Findings: Dilated left ureter and left renal pelvis are seen. Slight inflammatory change is noted around the renal pelvis and proximal left ureter. These findings are caused by an obstructing stone within the distal left ureter close to the UVJ. Size of this is calculus is similar to previous study (6 mm) and presumably represents a stone that has migrated distally from prior exam. Small nonobstructing calculi are noted within the lower and upper pole of the left kidney which are stable from prior exam. Partially seen bilateral breast prostheses are noted. Visualized lung bases show a slight nodule within the left base presumably due to atelectasis as this is not seen on prior exam. Liver and spleen show no focal abnormality. Adrenal glands show no nodule. No abnormality seen is within the pancreas. Surgical clips are seen from prior cholecystectomy. Abdominal aorta shows diffuse atherosclerotic calcification which continues into the iliac vessels. No aneurysm is seen. No retroperitoneal adenopathy or mesenteric abnormalities are seen. Several surgical clips are noted off the tip of the cecum. No pelvic mass or adenopathy is seen. There is evidence of prior surgery within the sigmoid colon with anastomotic sutures. Bone window settings were reviewed which show no acute osseous finding. Impression: 1. Distal left ureteral calculus near the UVJ causing inflammatory change around the proximal left ureter and renal pelvis as well as dilatation of the ureter and renal pelvis. Calculus measures approximately 6 mm. Calculus was noted on previous study within the proximal left ureter and most likely has moved distally in the interim to now lie within the distal left ureter. 2. Two small nonobstructing stones within the left kidney which is stable. 3. Other findings as noted above which are believed to be incidental and also stable from prior exam. Diagnostic code #3
== END 2020-09-28 11:57 | disposition home or self-care (01) ==
LOC: SUPCPDRO 08:46 → JD.ED 08:46
DX: N20.2 Calculus of kidney with calculus of ureter (principal); U07.1 COVID-19; E78.00 Pure hypercholesterolemia, unspecified; I10 Essential (primary) hypertension; E11.9 Type 2 diabetes mellitus without complications; E03.9 Hypothyroidism, unspecified; E66.9 Obesity, unspecified; Z68.38 Body mass index [BMI] 38.0-38.9, adult; Z91.048 Other nonmedicinal substance allergy status; Z88.5 Allergy status to narcotic agent
CPT/HCPCS: 74176; 81001; 96374; 96375; 99284; J1170; J2765; J7042